=== PATIENT | male | born 1970 | race Caucasian/White ===

== ENCOUNTER 2019-01-10 10:02 | Observation (INO) | payer BC ==
[2019-01-10] MEDS ORDERED: ASPIRIN 81 MG TABLET, CHEWABLE PO ONE (10:30)
[2019-01-10] MEDS: NITROGLYCERIN 0.4 MG/TAB 25 TAB/BOTTLE SL PRN ×2 (10:33→15:35)
--- NOTE | 2019-01-10 10:41 | ER Document Report ---
ED Cardiac - General Chief Complaint: Chest Pain Stated Complaint: CHEST PAIN Time Seen by Provider: 01/10/19 10:17 Mode of Arrival: Ambulatory Information source: Patient Notes: Patient is a 48-year-old male with history of COPD, emphysema and bladder cancer presenting to the emergency department with sudden onset chest pain shortness of breath that began at 930 this morning while working. Patient reports he was working out in the heat and was already sweating. Patient states that the pain is on the right side of his chest, feels like a squeezing in his chest with associated shortness of breath. Patient reports he also feels lightheaded and states that he feels very shaky. Patient reports the pain does radiate up into the right side of his neck. Current pain is 5/10. Patient does report smoking 1 pack/day, does not use any illicit substances and rarely drinks alcohol. TRAVEL OUTSIDE OF THE [place] IN LAST 30 DAYS: No - Related Data Allergies/Adverse Reactions: No Known Drug Allergies Allergy (Verified 01/10/19 10:03) Past Medical History - General Information source: Patient - Social History Smoking Status: Current Every Day Smoker Frequency of alcohol use: Rare Drug Abuse: None Family History: CAD, Hyperlipidemia, Hypertension - Medical History Medical History: Negative Surgical Hx: Negative - Immunizations Immunizations up to date: Yes Review of Systems - Review of Systems Constitutional: No symptoms reported EENT: No symptoms reported Cardiovascular: Chest pain Respiratory: Short of breath Gastrointestinal: No symptoms reported Genitourinary: No symptoms reported Male Genitourinary: No symptoms reported Musculoskeletal: No symptoms reported Skin: No symptoms reported Hematologic/Lymphatic: No symptoms reported Neurological/Psychological: No symptoms reported Physical Exam - Vital signs Vitals: Temp Pulse Resp BP Pulse Ox 97.8 F 80 24 H 130/102 H 99 01/10/19 10:10 01/10/19 10:10 01/10/19 10:10 01/10/19 10:10 01/10/19 10:10 - Notes Notes: PHYSICAL EXAMINATION: GENERAL: Well-appearing, well-nourished. HEAD: Atraumatic, normocephalic. EYES: Pupils equal round and reactive to light, extraocular movements intact, sclera anicteric, conjunctiva are normal. ENT: Nares patent, oropharynx clear without exudates. Moist mucous membranes. NECK: Normal range of motion, supple without lymphadenopathy LUNGS: Breath sounds clear to auscultation bilaterally and equal. No wheezes rales or rhonchi. HEART: Regular rate and rhythm without murmurs ABDOMEN: Soft, nontender, nondistended abdomen. No guarding, no rebound. No masses appreciated. Musculoskeletal: Normal range of motion, no pitting or edema. No cyanosis. NEUROLOGICAL: Cranial nerves grossly intact. Normal speech, normal gait. Normal sensory, motor exams PSYCH: Normal mood, normal affect. SKIN: Warm, Dry, normal turgor, no rashes or lesions noted. Course - Re-evaluation Re-evalutation: Patient appears to be in moderate distress at the time of my initial evaluation. His TASHA level was upgraded to TASHA 2. Nitroglycerin sublingual tablets were ordered. Patient currently reporting chest pain 5/10. He is also short of breath. His oxygen saturation however is 100% and he is slightly hyperventilating. I did encourage patient to slow down and focus on his breathing. His is at the bedside. Nurses at bedside drawing labs. EKG was performed at triage and shows a sinus rhythm, rate of 88, QTc 407, borderline right axis deviation and no ST segment elevations or depressions. Patient was strictly encouraged to call out if his chest pain worsens so that we can take a repeat EKG. CBC, CBC and initial troponin are negative. EKG was reviewed as outlined above. Chest x-ray is unremarkable with no evidence of pneumothorax, infiltrate or cardiomegaly. Patient had complete resolution of chest pain after administration of nitroglycerin. Of note patient's calcium is 12.0. Will treat patient with 2 L of normal saline at this time and redraw a chemistry at that time. Patient updated on plan of care. Repeat calcium is down to 9. Second troponin is negative. Patient did have a short episode of repeat chest pain level at that time was 1/5. Again this was relieved with 1 tablet of nitroglycerin. His heart score is 3. Will consult hospitalist for admission. 01/10/19 15:25 Consulted hospitalist, Dr. Dominguez for admission. He wants cardiology consulted prior to excepting the patient. Dr. Curry was contacted who has no issue with the patient being admitted here. Patient now accepted for admission by Dr. Dominguez. - Vital Signs Vital signs: Temp Pulse Resp BP Pulse Ox 97.8 F 80 14 111/72 98 01/10/19 10:10 01/10/19 10:10 01/10/19 16:01 01/10/19 16:00 01/10/19 16:01 - Laboratory Result Diagrams: 01/10/19 10:47 01/10/19 13:46 Laboratory results interpreted by me: 01/10/19 01/10/19 01/10/19 10:47 10:47 13:46 WBC 13.4 H Hgb 17.2 H Absolute Neutrophils 9.6 H Chloride 109 H 112 H Creatinine 1.46 H 1.36 H Est GFR (Non-Af Amer) 52 L 56 L Calcium 12.0 H* ALT 17 L Creatine Kinase 53 L Discharge - Discharge Clinical Impression: Chest pain Qualifiers: Chest pain type: unspecified Qualified Code(s): R07.9 - Chest pain, unspecified Condition: Stable Disposition: ADMITTED OBSERVATION Admitting Provider: Aruna (Hospitalist) Unit Admitted: Telemetry
--- NOTE | 2019-01-10 10:56 | RADIOLOGY REPORT (SQ) ---
EXAM DESCRIPTION: CHEST SINGLE VIEW COMPLETED DATE/TIME: 01/10/2019 10:36 am REASON FOR STUDY: Chest Pain COMPARISON: None. EXAM PARAMETERS: NUMBER OF VIEWS: One view. TECHNIQUE: Single frontal radiographic view of the chest acquired. RADIATION DOSE: NA LIMITATIONS: None. FINDINGS: LUNGS AND PLEURA: No opacities, masses or pneumothorax. No pleural effusion. MEDIASTINUM AND HILAR STRUCTURES: No masses. Contour normal. HEART AND VASCULAR STRUCTURES: Heart normal in size. Normal vasculature. BONES: No acute findings. HARDWARE: None in the chest. OTHER: No other significant finding. IMPRESSION: NO ACUTE RADIOGRAPHIC FINDING IN THE CHEST. TECHNICAL DOCUMENTATION: JOB ID: [id number] [employer]- All Rights Reserved Reading location - IP/workstation name: [email or web address]
[2019-01-10 11:02] LABS: ABSOLUTE BASOPHILS # (AUTO) 0.1 10^3/uL (0.0-0.2); ABSOLUTE EOSINOPHILS # (AUTO) 0.1 10^3/uL (0.0-0.6); ABSOLUTE LYMPHOCYTES (AUTO) 2.9 10^3/uL (0.5-4.7); ABSOLUTE MONOCYTES (AUTO) 0.7 10^3/uL (0.1-1.4); ABSOLUTE NEUT (AUTO) 9.6 10^3/uL (1.7-8.2); BASOPHILS % (AUTO) 0.5 % (0-2); EOSINOPHILS % (AUTO) 0.8 % (0-6); HEMATOCRIT 50.2 % (37.9-51.0); HEMOGLOBIN 17.2 g/dL (13.5-17.0); LYMPHOCYTES % (AUTO) 21.4 % (13-45); MEAN CORPUSCULAR HEMOGLOBIN 31.4 pg (27.0-33.4); MEAN CORPUSCULAR HGB CONC 34.4 g/dL (32.0-36.0); MEAN CORPUSCULAR VOLUME 91 fl (80-97); MONOCYTES % (AUTO) 5.1 % (3-13); PLATELET COUNT 255 10^3/uL (150-450); RED CELL DISTRIBUTION WIDTH 12.9 % (11.5-14.0); SEGMENTED NEUTROPHILS % (AUTO) 72.2 % (42-78); TOTAL CELLS COUNTED % (AUTO) 100 %; WHITE BLOOD COUNT 13.4 10^3/uL (4.0-10.5)
[2019-01-10 11:17] LABS: INTERNATIONAL RATION (INR) 0.89; PROTHROMBIN TIME 12.5 SEC (11.4-15.4)
[2019-01-10 11:20] LABS: ALANINE AMINOTRANSFERASE 17 U/L (21-72); ALBUMIN 4.7 g/dL (3.5-5.0); ALKALINE PHOSPHATASE 73 U/L (38-126); ANION GAP 12 (5-19); ASPARTATE AMINO TRANSFERASE 19 U/L (17-59); BILIRUBIN,DIRECT 0.2 mg/dL (0.0-0.4); BILIRUBIN,TOTAL 0.7 mg/dL (0.2-1.3); BLOOD UREA NITROGEN 14 mg/dL (7-20); CARBON DIOXIDE 23 mmol/L (22-30); CHLORIDE 109 mmol/L (98-107); CREATINE KINASE 53 U/L (55-170); GLUCOSE 100 mg/dL (75-110); POTASSIUM 4.7 mmol/L (3.6-5.0); SODIUM 144.4 mmol/L (137-145); TOTAL PROTEIN 7.5 g/dL (6.3-8.2)
[2019-01-10 11:32] LABS: CREATINE KINASE MB 0.38 ng/mL (<4.55)
[2019-01-10] MEDS ORDERED: NORMAL SALINE 1000 ML 1,000 ML IV ONE ×2 (11:49→12:14)
[2019-01-10 12:01] LABS: TROPONIN I < 0.012 ng/mL
--- NOTE | 2019-01-10 13:10 | EKG REPORT ---
SEVERITY:- OTHERWISE NORMAL ECG - SINUS RHYTHM BORDERLINE RIGHT AXIS DEVIATION : Confirmed by: Glenn Anderson MD 10-Jan-2019 13:09:57
[2019-01-10 14:20] LABS: BLOOD UREA NITROGEN 15 mg/dL (7-20); GLUCOSE 83 mg/dL (75-110); POTASSIUM 4.4 mmol/L (3.6-5.0)
[2019-01-10 14:26] LABS: ANION GAP 6 (5-19); CARBON DIOXIDE 26 mmol/L (22-30); CHLORIDE 112 mmol/L (98-107); SODIUM 143.9 mmol/L (137-145)
[2019-01-10] MEDS ORDERED: ONDANSETRON HCL INJ/PF 4 MG/2 ML SDV IV PRN (16:03)
[2019-01-10] MEDS ORDERED: ACETAMINOPHEN 325 MG TABLET PO PRN (16:03)
[2019-01-10] MEDS ORDERED: LEVALBUTEROL HCL NEB 0.63 MG/3 ML AMPUL NEB PRN (16:03)
[2019-01-10] MEDS ORDERED: MORPHINE SULFATE 10 MG/ML INJ IV PRN (16:08)
--- NOTE | 2019-01-10 16:19 | PDOC H&P ---
History of Present Illness Admission Date/PCP: 01/10/19 15:50 Patient complains of: Chest pain History of Present Illness: LASHAE SANZ is a 48 year old male with history of chronic smoking, COPD/emphysema, bladder cancer status post surgery 3 years ago came to the emergency room with complaints of chest pain right-sided chest pain started between 9 AM to 9:30 in the morning. It started at rest. Initially started in the neck radiated to the right shoulder and to the back. After 10 minutes pain scale worsened intensity went up to 8/10 associated with lightheadedness and shortness of breath. Patient and the family decided to come to the emergency room for further evaluation in the emergency room given nitroglycerin which eased of the pain. Patient received 2 nitros in the emergency room at the point at this moment pain scale is 2 x 10. 2 sets of EKGs and 2 sets of cardiac enzymes are negative so far. The ER physician got in touch with Dr. Curry he agreed for the patient to be admitted here in the hospital. I went to talk to the patient and his patient is comfortably in the bed communicating well described being pain intensity is 2/10. He never had this kind of pains before. Denies any recent history of fever cold cough. Has any nausea vomiting diarrhea. Patient is agreed to stay overnight for the chest pain to rule out acute coronary syndrome. Past Medical History Pulmonary Medical History: Reports: Chronic Obstructive Pulmonary Disease (COPD) Malignancy History Note: Patient has history of bladder cancer as per the patient family tomorrow was removed 3 years ago never received chemo/radiation therapy. As per the patient family bladder cancer is cured. Past Surgical History Past Surgical History: Reports: Other - Bladder surgery for for cancer. Social History Information Source: Patient Smoking Status: Current Every Day Smoker Frequency of Alcohol Use: Rare Hx Recreational Drug Use: No Drugs: None - Advance Directive Resuscitation Status: Full Code Family History Parental Family History Reviewed: Yes - Mother and father with history of heart disease. Children Family History Reviewed: Yes Sibling(s) Family History Reviewed.: Yes Medication/Allergy Allergies/Adverse Reactions: No Known Drug Allergies Allergy (Verified 01/10/19 10:03) Review of Systems Constitutional: ABSENT: chills, fever(s), headache(s), night sweats, weakness, weight gain, weight loss Eyes: ABSENT: visual disturbances Ears: ABSENT: hearing changes Nose, Mouth, and Throat: PRESENT: sore throat Cardiovascular: PRESENT: chest pain Genitourinary: ABSENT: dysuria, hematuria Musculoskeletal: ABSENT: joint swelling Integumentary: ABSENT: rash, wounds Neurological: PRESENT: dizziness, other - Lightheadedness Psychiatric: ABSENT: anxiety, depression, homidical ideation, suicidal ideation Physical Exam Vital Signs: Temp Pulse Resp BP Pulse Ox 97.8 F 80 14 111/72 98 01/10/19 10:10 01/10/19 10:10 01/10/19 16:01 01/10/19 16:00 01/10/19 16:01 Intake & Output 01/09/19 01/10/19 01/11/19 06:59 06:59 06:59 Intake Total 1999 Balance 1999 Weight 70 kg General appearance: PRESENT: no acute distress, well-developed Head exam: PRESENT: atraumatic Eye exam: PRESENT: PERRLA Ear exam: PRESENT: normal external ear exam Mouth exam: PRESENT: moist, tongue midline Neck exam: ABSENT: carotid bruit, JVD, lymphadenopathy, thyromegaly Respiratory exam: PRESENT: decreased breath sounds Cardiovascular exam: PRESENT: RRR. ABSENT: diastolic murmur, rubs, systolic murmur GI/Abdominal exam: PRESENT: normal bowel sounds, soft. ABSENT: distended, guarding, mass, organolmegaly, rebound, tenderness Rectal exam: PRESENT: deferred Extremities exam: PRESENT: full ROM. ABSENT: calf tenderness, clubbing, pedal edema Neurological exam: PRESENT: alert, awake, oriented to person, oriented to place, oriented to time, oriented to situation, CN II-XII grossly intact. ABSENT: motor sensory deficit Psychiatric exam: PRESENT: appropriate affect, normal mood. ABSENT: homicidal ideation, suicidal ideation Results Laboratory Results: 01/10/19 10:47 01/10/19 13:46 01/10/19 01/10/19 01/10/19 10:47 10:47 13:46 WBC 13.4 H RBC 5.50 Hgb 17.2 H Hct 50.2 MCV 91 MCH 31.4 MCHC 34.4 RDW 12.9 Plt Count 255 Seg Neutrophils % 72.2 Lymphocytes % 21.4 Monocytes % 5.1 Eosinophils % 0.8 Basophils % 0.5 Absolute Neutrophils 9.6 H Absolute Lymphocytes 2.9 Absolute Monocytes 0.7 Absolute Eosinophils 0.1 Absolute Basophils 0.1 Sodium 144.4 143.9 Potassium 4.7 4.4 Chloride 109 H 112 H Carbon Dioxide 23 26 Anion Gap 12 6 BUN 14 15 Creatinine 1.46 H 1.36 H Est GFR ( Amer) > 60 > 60 Est GFR (Non-Af Amer) 52 L 56 L Glucose 100 83 Calcium 12.0 H* 9.0 Total Bilirubin 0.7 AST 19 ALT 17 L Alkaline Phosphatase 73 Total Protein 7.5 Albumin 4.7 01/10/19 01/10/19 01/10/19 10:47 10:47 13:46 Creatine Kinase 53 L CK-MB (CK-2) 0.38 Troponin I < 0.012 < 0.012 Impressions: Chest X-Ray 01/10/19 00:00 IMPRESSION: NO ACUTE RADIOGRAPHIC FINDING IN THE CHEST. Assessment and Plan - Diagnosis (1) Chest pain Qualifiers: Chest pain type: unspecified Qualified Code(s): R07.9 - Chest pain, unspecified Is this a current diagnosis for this admission?: Yes Plan: 01/10/2019-patient was admitted into telemetry as observation. Started on aspirin 325 mg p.o. daily, atorvastatin 20 mg p.o. daily chest. Lipid panel was requested in the morning serial CPKs and troponins are requested. Follow-up EKG was requested. Pharmacological stress test was requested for tomorrow. Started GI prophylaxis and DVT prophylaxis. Supplemental oxygen is provided started on nicotine patch for the chest pains started on morphine 2 mg IV every 4 PRN for chest pain. (2) COPD (chronic obstructive pulmonary disease) Is this a current diagnosis for this admission?: No Plan: 01/10/2019-patient has history of COPD on examination chest bilateral entry was decreased no wheezing no crepitations are present. Socks is 96% on room air. (3) Tobacco abuse Is this a current diagnosis for this admission?: No Plan: 01/10/2019-patient has history of chronic smoking is smoking more than 37 years. Smokes close to 1 pack/day. Smoking counseling was provided for more than 10 minutes. Nicotine patch was offered. - Time Time Spent with patient: 25-34 minutes Smoking Cessation Education: over 10 minutes Medications reviewed and adjusted accordingly: Yes Anticipated discharge: Home
[2019-01-10] MEDS: ASPIRIN 325 MG TABLET PO SCH (17:28)
[2019-01-10] MEDS: PANTOPRAZOLE SODIUM 40 MG TABLET.DR PO SCH (17:28)
[2019-01-10] MEDS: NICOTINE 14 MG/24 HR PATCH.TD24 TD SCH (17:28)
[2019-01-10] MEDS: ENOXAPARIN SODIUM INJ 40 MG/0.4 ML DISP.SYRIN SUBCUT SCH (17:29)
[2019-01-10 20:20] LABS: CREATINE KINASE MB 0.35 ng/mL (<4.55)
[2019-01-10 20:26] LABS: TROPONIN I < 0.012 ng/mL
[2019-01-10] MEDS: ATORVASTATIN CALCIUM 40 MG TABLET PO SCH (23:09)
[2019-01-11 01:56] LABS: CREATINE KINASE MB 0.24 ng/mL (<4.55)
[2019-01-11 02:00] LABS: TROPONIN I < 0.012 ng/mL
[2019-01-11] MEDS: PANTOPRAZOLE SODIUM 40 MG TABLET.DR PO SCH (05:45)
--- NOTE | 2019-01-11 07:34 | EKG REPORT ---
SEVERITY:- NORMAL ECG - SINUS RHYTHM : Confirmed by: Glenn Anderson MD 11-Jan-2019 07:34:30
[2019-01-11 07:54] LABS: ABSOLUTE BASOPHILS # (AUTO) 0.1 10^3/uL (0.0-0.2); ABSOLUTE EOSINOPHILS # (AUTO) 0.3 10^3/uL (0.0-0.6); ABSOLUTE LYMPHOCYTES (AUTO) 2.1 10^3/uL (0.5-4.7); ABSOLUTE MONOCYTES (AUTO) 0.5 10^3/uL (0.1-1.4); ABSOLUTE NEUT (AUTO) 4.1 10^3/uL (1.7-8.2); BASOPHILS % (AUTO) 0.9 % (0-2); EOSINOPHILS % (AUTO) 4.3 % (0-6); HEMATOCRIT 45.3 % (37.9-51.0); HEMOGLOBIN 15.3 g/dL (13.5-17.0); LYMPHOCYTES % (AUTO) 29.5 % (13-45); MEAN CORPUSCULAR HEMOGLOBIN 31.4 pg (27.0-33.4); MEAN CORPUSCULAR HGB CONC 33.8 g/dL (32.0-36.0); MEAN CORPUSCULAR VOLUME 93 fl (80-97); MONOCYTES % (AUTO) 7.7 % (3-13); PLATELET COUNT 162 10^3/uL (150-450); RED BLOOD COUNT 4.88 10^6/uL (4.35-5.55); SEGMENTED NEUTROPHILS % (AUTO) 57.6 % (42-78); TOTAL CELLS COUNTED % (AUTO) 100 %; WHITE BLOOD COUNT 7.1 10^3/uL (4.0-10.5)
[2019-01-11 08:08] LABS: ALANINE AMINOTRANSFERASE 19 U/L (21-72); ALBUMIN 3.7 g/dL (3.5-5.0); ALKALINE PHOSPHATASE 52 U/L (38-126); ANION GAP 8 (5-19); ASPARTATE AMINO TRANSFERASE 16 U/L (17-59); BILIRUBIN,DIRECT 0.2 mg/dL (0.0-0.4); BILIRUBIN,TOTAL 0.8 mg/dL (0.2-1.3); BLOOD UREA NITROGEN 20 mg/dL (7-20); CARBON DIOXIDE 24 mmol/L (22-30); CHLORIDE 111 mmol/L (98-107); CHOLESTEROL 159.16 mg/dL (0-200); CREATINE KINASE 42 U/L (55-170); GLUCOSE 89 mg/dL (75-110); POTASSIUM 4.6 mmol/L (3.6-5.0); SODIUM 143.3 mmol/L (137-145); TOTAL PROTEIN 5.4 g/dL (6.3-8.2); TRIGLYCERIDES 72 mg/dL (<150)
[2019-01-11 08:25] LABS: DIRECT LDL 94 mg/dL (<100)
[2019-01-11 08:33] LABS: CREATINE KINASE MB 0.22 ng/mL (<4.55)
[2019-01-11 08:38] LABS: TROPONIN I < 0.012 ng/mL
--- NOTE | 2019-01-11 11:09 | DRAGON STRESS TEST REPORT ---
Date of procedure 01/11/2019 Patient name Javon Eckert Age [age] years old Sex male Ordering physician Mac Valdovinos MD Reason for study chest pain Imaging protocol Exercise nuclear MIBI SPECT study Rest images of the heart were obtained 60 minutes after Cardiolite 10.09 mCi was injected. Under the supervision of Dr. Darvin Hall MD patient was walked on standard Shaun treadmill protocol for 8 minutes and 4 seconds achieving 10.1 METS. Patient's resting heart rate was 78 bpm which increased to a maximum of 162 bpm, which is 93% of maximum predicted rate. Patient's resting blood pressure was 122/77 and increased to a maximum of 158/65 mmHg, which indicates a normal hemodynamic response to exercise. Patient's resting EKG showed sinus rhythm and upon exercise patient developed sinus tachycardia with no EKG changes specific for ischemia noted. Stress images of the heart were obtained 60 minutes after peak stress and injection of Cardiolite 30.8 mCi. Raw Rest and stress images were reviewed and showed significant uptake. Attenuation correction software was applied. Myocardial perfusion imaging shows partially reversible perfusion defect in the inferior LV wall segment which could represent mild ischemia or myocardial scarring. Component of diaphragmatic attenuation cannot be ruled out. Computer-assisted tomographic analysis shows normal LV wall motion and systolic contractility poststress. Left ventricular ejection fraction post stress was 58%.TID ratio was 1.00. Impression 1. Good exercise tolerance on treadmill stress. 2. Normal hemodynamic response to exercise. 3. No exercise-induced EKG changes specific for ischemia noted. 4. Myocardial perfusion imaging shows partially reversible perfusion defect in the inferior LV wall segment which could represent mild ischemia or myocardial scarring with component of diaphragmatic attenuation. 5. Normal LVEF at 58% post stress. 6. Normal LV wall motion and systolic contractility poststress. Electronically signed by Darvin Hall MD [facility] [place] DIVISIONCeasar
[2019-01-11] MEDS: ENOXAPARIN SODIUM INJ 40 MG/0.4 ML DISP.SYRIN SUBCUT SCH (11:25)
[2019-01-11] MEDS: NICOTINE 14 MG/24 HR PATCH.TD24 TD SCH (11:26)
[2019-01-11] MEDS: ASPIRIN 325 MG TABLET PO SCH (11:26)
--- NOTE | 2019-01-11 15:23 | PDOC PROGRESS REPORT ---
Subjective Progress Note for:: 01/11/19 Subjective:: 48 year old male with history of chronic smoking, COPD/emphysema, bladder cancer status post surgery 3 years ago came to the emergency room with complaints of chest pain right-sided chest pain started between 9 AM to 9:30 in the morning. It started at rest. Initially started in the neck radiated to the right shoulder and to the back. After 10 minutes pain scale worsened intensity went up to 8/10 associated with lightheadedness and shortness of breath. Patient and the family decided to come to the emergency room for further evaluation in the emergency room given nitroglycerin which eased of the pain. Patient received 2 nitros in the emergency room at the point at this moment pain scale is 2 x 10. 2 sets of EKGs and 2 sets of cardiac enzymes are negative so far. The ER physician got in touch with Dr. Curry he agreed for the patient to be admitted here in the hospital. I went to talk to the patient and his patient is comfortably in the bed communicating well described being pain intensity is 2/10. He never had this kind of pains before. Denies any recent history of fever cold cough. Has any nausea vomiting diarrhea. Patient is agreed to stay overnight for the chest pain to rule out acute coronary syndrome. 01/11[id number]-eare-old male with history of COPD/emphysema chronic smoker with smoking history of more than 35 years admitted for chest pain. He has had a stress test done this morning Dr. Jimenez called me and he fired me that there is a small perfusion defect noticed his recommendation is to keep the patient in the hospital for 1 more day with aspirin, beta-blockers and cholesterol medication and is going to follow the patient as an outpatient next week. Reason For Visit: CHEST PAIN Physical Exam Vital Signs: Temp Pulse Resp BP Pulse Ox 97.3 F 77 16 116/69 99 01/11/19 12:00 01/11/19 12:00 01/11/19 12:00 01/11/19 12:00 01/11/19 12:00 Intake & Output 01/10/19 01/11/19 01/12/19 06:59 06:59 06:59 Intake Total 2400 Balance 2400 Weight 65 kg General appearance: PRESENT: no acute distress Head exam: PRESENT: atraumatic Eye exam: PRESENT: PERRLA Mouth exam: PRESENT: moist, tongue midline Teeth exam: PRESENT: poor dentation Neck exam: ABSENT: carotid bruit, JVD, lymphadenopathy, thyromegaly Respiratory exam: PRESENT: decreased breath sounds Cardiovascular exam: PRESENT: RRR. ABSENT: diastolic murmur, rubs, systolic murmur GI/Abdominal exam: PRESENT: normal bowel sounds, soft. ABSENT: distended, guarding, mass, organolmegaly, rebound, tenderness Rectal exam: PRESENT: deferred Extremities exam: PRESENT: full ROM. ABSENT: calf tenderness, clubbing, pedal edema Neurological exam: PRESENT: alert, awake, oriented to person, oriented to place, oriented to time, oriented to situation, CN II-XII grossly intact. ABSENT: motor sensory deficit Psychiatric exam: PRESENT: appropriate affect, normal mood. ABSENT: homicidal ideation, suicidal ideation Results Laboratory Results: 01/11/19 07:35 01/11/19 07:35 01/11/19 01/11/19 01/11/19 07:35 07:35 07:35 WBC 7.1 RBC 4.88 Hgb 15.3 Hct 45.3 MCV 93 MCH 31.4 MCHC 33.8 RDW 13.0 Plt Count 162 Seg Neutrophils % 57.6 Lymphocytes % 29.5 Monocytes % 7.7 Eosinophils % 4.3 Basophils % 0.9 Absolute Neutrophils 4.1 Absolute Lymphocytes 2.1 Absolute Monocytes 0.5 Absolute Eosinophils 0.3 Absolute Basophils 0.1 Sodium 143.3 Potassium 4.6 Chloride 111 H Carbon Dioxide 24 Anion Gap 8 BUN 20 Creatinine 1.25 Est GFR ( Amer) > 60 Est GFR (Non-Af Amer) > 60 Glucose 89 Calcium 10.0 Magnesium 1.9 Total Bilirubin 0.8 AST 16 L ALT 19 L Alkaline Phosphatase 52 Total Protein 5.4 L Albumin 3.7 Triglycerides 72 Cholesterol 159.16 LDL Cholesterol Direct 94 VLDL Cholesterol 14.0 HDL Cholesterol 49 TSH 2.78 01/10/19 01/10/19 01/10/19 10:47 10:47 13:46 Creatine Kinase 53 L CK-MB (CK-2) 0.38 Troponin I < 0.012 < 0.012 01/10/19 01/10/19 01/11/19 19:30 19:30 01:16 Creatine Kinase 38 L 39 L CK-MB (CK-2) 0.35 Troponin I < 0.012 01/11/19 01/11/19 01/11/19 01:16 07:35 07:35 Creatine Kinase 42 L CK-MB (CK-2) 0.24 0.22 Troponin I < 0.012 < 0.012 Impressions: Chest X-Ray 01/10/19 00:00 IMPRESSION: NO ACUTE RADIOGRAPHIC FINDING IN THE CHEST. Assessment and Plan - Diagnosis (1) Chest pain Qualifiers: Chest pain type: unspecified Qualified Code(s): R07.9 - Chest pain, unspecified Is this a current diagnosis for this admission?: Yes Plan: 01/10/2019-patient was admitted into telemetry as observation. Started on aspirin 325 mg p.o. daily, atorvastatin 20 mg p.o. daily chest. Lipid panel was requested in the morning serial CPKs and troponins are requested. Follow-up EKG was requested. Pharmacological stress test was requested for tomorrow. Started GI prophylaxis and DVT prophylaxis. Supplemental oxygen is provided started on nicotine patch for the chest pains started on morphine 2 mg IV every 4 PRN for chest pain. 01/11/2019-patient is admitted with chest pain he did well on the stress test but Dr. Krishnamurthy told me this is a small I think he told me perfusion defect was noticed and his recommendation is to keep the patient in the hospital another day/night with aspirin, beta-blockers and cholesterol medication and he has plans to see him as an outpatient in1 week. (2) COPD (chronic obstructive pulmonary disease) Is this a current diagnosis for this admission?: No Plan: 01/10/2019-patient has history of COPD on examination chest bilateral entry was decreased no wheezing no crepitations are present. Socks is 96% on room air. 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 Pulse ox is 96% on room air. On examination chest bilateral entry was decreased no wheezing no crepitations are present. Plan is to continue the present management. (3) Tobacco abuse Is this a current diagnosis for this admission?: No - Time Time Spent with patient: 25-34 minutes Smoking Cessation Education: over 10 minutes Medications reviewed and adjusted accordingly: Yes Anticipated discharge: Home
[2019-01-11] MEDS: METOPROLOL TARTRATE 25 MG TABLET PO SCH (21:58)
[2019-01-11] MEDS: ATORVASTATIN CALCIUM 40 MG TABLET PO SCH (21:59)
[2019-01-12] MEDS: PANTOPRAZOLE SODIUM 40 MG TABLET.DR PO SCH (05:15)
[2019-01-12] MEDS: ENOXAPARIN SODIUM INJ 40 MG/0.4 ML DISP.SYRIN SUBCUT SCH (10:41)
[2019-01-12] MEDS: METOPROLOL TARTRATE 25 MG TABLET PO SCH (10:41)
[2019-01-12] MEDS: ASPIRIN 325 MG TABLET PO SCH (10:41)
[2019-01-12] MEDS: NICOTINE 14 MG/24 HR PATCH.TD24 TD SCH (10:42)
[2019-01-12 12:09] VITALS: BP 121/81
--- NOTE | 2019-01-12 12:40 | PDOC DISCHARGE SUMMARY ---
General - Admit/Disc Date/PCP Admission Date/Primary Care Provider: 01/10/19 15:50 Discharge Date: 01/12/19 - Discharge Diagnosis (1) Chest pain Is this a current diagnosis for this admission?: Yes Summary: 01/10/2019-patient was admitted into telemetry as observation. Started on a spirin 325 mg p.o. daily, atorvastatin 20 mg p.o. daily chest. Lipid panel was requested in the morning serial CPKs and troponins are requested. Follow-up EKG was requested. Pharmacological stress test was requested for tomorrow. Started GI prophylaxis and DVT prophylaxis. Supplemental oxygen is provided started on nicotine patch for the chest pains started on morphine 2 mg IV every 4 PRN for chest pain. 01/11/2019-patient is admitted with chest pain he did well on the stress test but Dr. Krishnamurthy told me this is a small I think he told me perfusion defect was noticed and his recommendation is to keep the patient in the hospital another day/night with aspirin, beta-blockers and cholesterol medication and he has plans to see him as an outpatient in1 week. 01/12/[id number]-newg-old male admitted for chest pain stress test was negative as per Dr. Hall, but noticed partially reversible perfusion defect in the inferior wall suggestive of myocardial ischemia/scarring. Recommendation that patient need to be on aspirin, beta-blockers and also on cholesterol medications. Prescription was given for aspirin, atorvastatin and metoprolol. And is advised to follow-up with Dr. Hall in 3 to 5 days.. (2) COPD (chronic obstructive pulmonary disease) Is this a current diagnosis for this admission?: No Summary: 01/10/2019-patient has history of COPD on examination chest bilateral entry was decreased no wheezing no crepitations are present. Socks is 96% on room air. 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 Pulse ox is 96% on room air. On examination chest bilateral entry was decreased no wheezing no crepitations are present. Plan is to continue the present management. 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 Patient is strongly advised to quit smoking. (3) Tobacco abuse Is this a current diagnosis for this admission?: No - Additional Information Resuscitation Status: Full Code Discharge Diet: Cardiac Discharge Activity: Activity As Tolerated Prescriptions: Aspirin [Aspirin 325 mg Tablet] 325 mg PO DAILY #30 tablet Atorvastatin Calcium [Lipitor 40 mg Tablet] 40 mg PO QHS #30 tablet Metoprolol Tartrate [Lopressor 25 mg Tablet] 25 mg PO Q12 #60 tablet Varenicline Tartrate [Chantix] 1 each PO ASDIR PRN #1 tab.ds.pk PRN Reason: Home Medications: Aspirin [Aspirin 325 mg Tablet] 325 mg PO DAILY #30 tablet 01/12/19 Atorvastatin Calcium [Lipitor 40 mg Tablet] 40 mg PO QHS #30 tablet 01/12/19 Metoprolol Tartrate [Lopressor 25 mg Tablet] 25 mg PO Q12 #60 tablet 01/12/19 Varenicline Tartrate [Chantix] 1 each PO ASDIR PRN #1 tab.ds.pk 01/12/19 History of Present Illness History of Present Illness: LASHAE SANZ is a 48 year old male with history of chronic smoking, COPD/emphysema, bladder cancer status post surgery 3 [facility] of [facility] pain right-sided chest pain started between 9 AM to 9:30 in the morning. It started at rest. Initially started in the neck radiated to the right shoulder and to the back. After 10 minutes pain scale worsened intensity went up to 8/10 associated with lightheadedness and shortness of breath. Patient and the family decided to come to the emergency room for further evaluation in the emergency room given nitroglycerin which eased of the pain. Patient received 2 nitros in the emergency room at the point at this moment pain scale is 2 x 10. 2 sets of EKGs and 2 sets of cardiac enzymes are negative so far. The ER physician got in touch with Dr. Curry he agreed for the patient to be admitted here in the hospital. I went to talk to the patient and his patient is comfortably in the bed communicating well described being pain intensity is 2/10. He never had this kind of pains before. Denies any recent history of fever cold cough. Has any nausea vomiting diarrhea. Patient is agreed to stay overnight for the chest pain to rule out acute cor onary syndrome. Hospital Course Hospital Course: 48-year-old male admitted with chest pains cardiac enzymes are negative EKGs are stable went for the stress test he did very well in the stress test. But noticed to have partially reversible perfusion defect involving the inferior wall suggestive of myocardial ischemia/scarring. Dr. Hall plans to follow him as an outpatient he recommended medical management at this time. Physical Exam Vital Signs: Temp Pulse Resp BP Pulse Ox 98.6 F 64 16 121/81 100 01/12/19 12:00 01/12/19 12:00 01/12/19 12:00 01/12/19 12:00 01/12/19 12:00 Intake & Output 01/11/19 01/12/19 01/13/19 06:59 06:59 06:59 Intake Total 2400 2195 Balance 2400 2195 Weight 65 kg 66.6 kg General appearance: PRESENT: no acute distress Head exam: PRESENT: atraumatic Eye exam: PRESENT: PERRLA Mouth exam: PRESENT: moist, tongue midline Neck exam: ABSENT: carotid bruit, JVD, lymphadenopathy, thyromegaly Respiratory exam: PRESENT: decreased breath sounds Cardiovascular exam: PRESENT: RRR. ABSENT: diastolic murmur, rubs, systolic murmur GI/Abdominal exam: PRESENT: normal bowel sounds, soft. ABSENT: distended, guarding, mass, organolmegaly, rebound, tenderness Rectal exam: PRESENT: deferred Neurological exam: PRESENT: alert, awake, oriented to person, oriented to place, oriented to time, oriented to situation, CN II-XII grossly intact. ABSENT: motor sensory deficit Psychiatric exam: PRESENT: appropriate affect, normal mood. ABSENT: homicidal ideation, suicidal ideation Results Laboratory Results: 01/11/19 07:35 01/11/19 07:35 01/10/19 01/10/19 01/10/19 10:47 10:47 13:46 Creatine Kinase 53 L CK-MB (CK-2) 0.38 Troponin I < 0.012 < 0.012 01/10/19 01/10/19 01/11/19 19:30 19:30 01:16 Creatine Kinase 38 L 39 L CK-MB (CK-2) 0.35 Troponin I < 0.012 01/11/19 01/11/19 01/11/19 01:16 07:35 07:35 Creatine Kinase 42 L CK-MB (CK-2) 0.24 0.22 Troponin I < 0.012 < 0.012 Impressions: Chest X-Ray 01/10/19 00:00 IMPRESSION: NO ACUTE RADIOGRAPHIC FINDING IN THE CHEST. Qualifiers - * PATIENT BEING DISCHARGED WITH ANY OF THE FOLLOWING DIAGNOSIS: No VTE patient discharged on overlapping Therapy?: No Acute Heart Failure - Is this a Heart Failure Patient?: No
== END 2019-01-12 14:25 | disposition home or self-care (01) ==
LOC: ER 10:02 → EH 15:50 → 5 20:10
PROVIDERS: ADMIT Internal Medicine; ATTEND Internal Medicine
PROC: HZ31ZZZ Individual Counseling for Substance Abuse Treatment, Behavioral (ICD-10-PCS; principal; 2019-01-10)
DX: R07.9 Chest pain, unspecified (principal); J43.9 Emphysema, unspecified; F17.210 Nicotine dependence, cigarettes, uncomplicated; J02.9 Acute pharyngitis, unspecified; R42 Dizziness and giddiness; R06.02 Shortness of breath; R25.8 Other abnormal involuntary movements; Z79.82 Long term (current) use of aspirin; Z79.899 Other long term (current) drug therapy; Z85.51 Personal history of malignant neoplasm of bladder; Z98.890 Other specified postprocedural states; Z82.49 Family history of ischemic heart disease and other diseases of the circulatory system
CPT/HCPCS: 93005 ×2; 99285; 96360; 96361; 36415 ×2; 82553 ×2; 82550 ×2; 83735; 84443; 85025 ×2; 85610; 80053 ×2; 84484 ×2; 83036; 80061; 93017; 71045; 78452; 93010 ×2; 99407; G0378 ×4; A9500; J1650; J3490 ×2; J7030; Q9969